=== PATIENT | male | born 1980 | race Caucasian/White ===

== ENCOUNTER 2021-01-15 07:30 | Emergency (ER) | payer OTHER ==
[~2021-01-15 07:30] MED LIST: AMOXICILLIN875 MG PO; ATIVAN0.5 MG PO; XANAX0.5 M1 PO; ZPAK PO
[2021-01-15 08:14] LABS: BASOPHIL 0.9 % (0-2); EOSINOPHIL 2.8 % (0-5); HCT 47.4 % (42.0-52.0); HGB 15.9 g/dl (13.2-18.0); LYMPHOCYTE 38.1 % (15-48); MCH 30.1 pg (25.0-31.0); MCHC 33.5 g/dL (32.0-36.0); MCV 89.6 fL (78.0-100.0); MONOCYTE 7.9 % (0-12); NEUTROPHIL 49.5 % (41-80); NRBC 0; PLT 206 K/uL (150-400); RBC 5.29 M/uL (4.70-6.00); RDW 12.7 % (11.5-14.0); WBC 7.5 K/uL (4.0-10.5)
[2021-01-15 08:31] LABS: ALBUMIN 3.5 g/dL (3.4-5.0); BILIRUBIN - TOTAL 0.2 mg/dL (0.2-1.0); BUN/CREAT RATIO (CALC) 9.6 RATIO; CREATININE 0.94 mg/dL (0.67-1.17); MAGNESIUM 1.9 mg/dL (1.8-2.4); POTASSIUM 4.1 mmol/L (3.5-5.1); TOTAL PROTEIN 6.5 g/dL (6.4-8.2)
[2021-01-15] MEDS ORDERED: ACIPHEX20 M1 PO (09:13)
[2021-01-15] MEDS ORDERED: CARAFATE1 GM PO (09:13)
[2021-01-15] MEDS ORDERED: VENTOLIN HFA18 GM INH (09:13)
[2021-01-15] MEDS ORDERED: COLACE100 MG PO (09:13)
== END 2021-01-15 09:34 | disposition home or self-care (01) ==
LOC: FER 07:30
PROVIDERS: Emergency Medicine
DX: J45.909 Unspecified asthma, uncomplicated (principal); K21.9 Gastro-esophageal reflux disease without esophagitis; Z88.0 Allergy status to penicillin
CPT/HCPCS: 36415; 71046; 74018; 80053; 83735; 84484; 85025; 93005

== ENCOUNTER 2021-10-03 11:25 | Emergency (ER) | payer OTHER ==
[~2021-10-03 11:25] MED LIST changes: +ACIPHEX20 M1 PO; +CARAFATE1 GM PO; +COLACE100 MG PO; +VENTOLIN HFA18 GM INH
[2021-10-03 11:55] LABS: HCT 46.3 % (42.0-52.0); HGB 15.9 g/dl (13.2-18.0); LYMPHOCYTE 37.9 % (15-48); MCH 30.3 pg (25.0-31.0); MCHC 34.3 g/dL (32.0-36.0); MCV 88.2 fL (78.0-100.0); MONOCYTE 6.2 % (0-12); MPV 10.6 fL (6.0-9.5); NEUTROPHIL 51.2 % (41-80); NRBC 0; PLT 195 K/uL (150-400); RBC 5.25 M/uL (4.70-6.00); RDW 12.2 % (11.5-14.0)
[2021-10-03 12:20] LABS: CREATININE 0.91 mg/dL (0.67-1.17); POTASSIUM 3.8 mmol/L (3.5-5.1)
[2021-10-03 13:08] LABS: CKMB 0.9 ng/mL (0.0-3.6)
== END 2021-10-03 13:41 | disposition home or self-care (01) ==
LOC: FER 11:25
PROVIDERS: Emergency Medicine
DX: R07.89 Other chest pain (principal); F41.1 Generalized anxiety disorder; I10 Essential (primary) hypertension; F17.210 Nicotine dependence, cigarettes, uncomplicated
CPT/HCPCS: 36415; 71046; 80048; 82553; 84484; 85025; 85379; 93005